=== PATIENT | male | born 1940 | race Caucasian/White ===

== ENCOUNTER → 2016-07-17 | Outpatient (CLI) | payer MEDICARE, BC ==
[~2016-07-17] MED LIST: ALEVE220 MG PO; ASPIRIN LO-DOSE81 MG PO; CHOLESTYRAMINE P4 GM PO; CLINDAMYCIN150 MG PO; CPAP INH; LANTUS SOL100 UNIT/1 SUB-Q; LEVOTHROID (S112 MCG PO; LUPRON DEPOT11.25 MG; LUTEIN6 M1 PO; MYRBETRIQ50 MG PO; NOVOLOG FL100 UNIT/1 SUB-Q; OSCAL + D500 MG PO; PRAVACHOL20 MG PO; PRINIVIL (ZESTR20 MG PO; THERA-VITE W/ B1 TAB PO; TYLENOL325 MG PO; XGEVA120 MG/1.7; XTANDI40 MG PO
== END | disposition disaster alternative care site (69) ==
LOC: GRAD 13:20
DX: M54.40 Lumbago with sciatica, unspecified side (principal); M48.06 Spinal stenosis, lumbar region; C61 Malignant neoplasm of prostate; C79.51 Secondary malignant neoplasm of bone

== ENCOUNTER → 2016-08-11 | Outpatient (CLI) | payer MEDICARE, BC | END | disposition disaster alternative care site (69) | LOC: GRAD 10:27 | DX: C61 Malignant neoplasm of prostate (principal); C79.51 Secondary malignant neoplasm of bone; K57.30 Diverticulosis of large intestine without perforation or abscess without bleeding; K76.9 Liver disease, unspecified; J43.9 Emphysema, unspecified; J84.10 Pulmonary fibrosis, unspecified; J98.4 Other disorders of lung | CPT/HCPCS: A9503 ==

== ENCOUNTER → 2016-09-16 | Emergency (ER) | payer MEDICARE, BC | END | disposition disaster alternative care site (69) | LOC: GAMB 16:50 | DX: R53.1 Weakness (principal); R29.6 Repeated falls ==

== ENCOUNTER → 2016-10-07 | Emergency (ER) | payer MEDICARE, BC | END | disposition disaster alternative care site (69) | LOC: GAMB 13:43 | DX: R53.1 Weakness (principal); R29.6 Repeated falls ==

== ENCOUNTER → 2016-11-13 | Emergency (ER) | payer MEDICARE, BC | END | disposition disaster alternative care site (69) | LOC: GAMB 10:59 | DX: R53.1 Weakness (principal); W01.0XXA Fall on same level from slipping, tripping and stumbling without subsequent striking against object, initial encounter ==

== ENCOUNTER → 2016-12-12 | Emergency (ER) | payer MEDICARE, BC | END | disposition disaster alternative care site (69) | LOC: GAMB 12:12 | DX: R53.1 Weakness (principal); Z85.46 Personal history of malignant neoplasm of prostate ==

== ENCOUNTER → 2016-12-25 | Emergency (ER) | payer MEDICARE, BC | END | disposition disaster alternative care site (69) | LOC: GAMB 20:11 | DX: R53.1 Weakness (principal); Z85.46 Personal history of malignant neoplasm of prostate; W19.XXXA Unspecified fall, initial encounter ==

== ENCOUNTER → 2017-01-11 | Emergency (ER) | payer MEDICARE, BC | END | disposition disaster alternative care site (69) | LOC: GAMB 16:26 | DX: R53.1 Weakness (principal); R26.2 Difficulty in walking, not elsewhere classified; W07.XXXA Fall from chair, initial encounter; Y93.01 Activity, walking, marching and hiking; Y92.008 Other place in unspecified non-institutional (private) residence as the place of occurrence of the external cause; Y99.8 Other external cause status ==